=== PATIENT | female | born 1995 | race Caucasian/White ===

== ENCOUNTER 2023-12-30 10:24 | Inpatient (IN) | payer OTHER, SELFPAY ==
[2023-12-30 10:28] VITALS: BP 114/80; PULSE 72; RESP 18; TEMP 36.6; O2SAT 97
[2023-12-30 10:30] VITALS: BMI 35.3
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
[2023-12-30 14:00] VITALS: BP 120/87; PULSE 74; RESP 18; TEMP 36.6; O2SAT 97
[2023-12-30] MEDS: acetaminophen 325 mg Tablet 650 MG PO (18:01)
[2023-12-30 21:40] VITALS: BP 117/82; PULSE 86; RESP 18; O2SAT 96
[2023-12-31] MEDS: acetaminophen 325 mg Tablet 650 MG PO (01:48)
[2023-12-31 06:00] VITALS: BP 101/67; PULSE 75; RESP 16; TEMP 36.7; O2SAT 95
--- NOTE | 2023-12-31 08:04 | PC.NURSE ---
cooperative and calm during assessment. Patient denies SI, Hi, AVH, and depression. When asked about anxiety, patient stated not right now. Patient informed of PRN medications that are available if she decided she needs something to calm her nerves. Understanding verbalized. No pain. No questions.
[2023-12-31] MEDS: PRENATAL VIT NO.130/IRON/FOLIC 1 EACH TABLET PO (08:10)
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
[2023-12-31] MEDS: sertraline 50 mg Tablet PO (12:35)
[2023-12-31 14:00] VITALS: BP 90/60; PULSE 74; RESP 16; TEMP 37.1; O2SAT 96
[2023-12-31 19:21] VITALS: BP 127/84; PULSE 83; RESP 18; TEMP 36.7; O2SAT 97
[2024-01-01 06:00] VITALS: BP 123/80; PULSE 75; RESP 16; TEMP 36.8; O2SAT 97
--- NOTE | 2024-01-01 07:57 | PC.NURSE ---
Patient denies avh and si/hi. When asked if she was experiencing any depression she stated, yes, it's always there. Patient stated she couldn't really tell much of a difference after being placed on zoloft. Denies any pain this morning. No needs voiced at this time.
[2024-01-01] MEDS: sertraline 50 mg Tablet PO (08:22)
[2024-01-01] MEDS: PRENATAL VIT NO.130/IRON/FOLIC 1 EACH TABLET PO (08:22)
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
[2024-01-01 14:00] VITALS: BP 109/70; PULSE 73; RESP 17; TEMP 37.2; O2SAT 97
[2024-01-01 19:29] VITALS: BP 122/83; PULSE 80; RESP 16; TEMP 36.6; O2SAT 95
[2024-01-02 06:00] VITALS: BP 106/71; PULSE 75; RESP 18; TEMP 36.9; O2SAT 96
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
[2024-01-02] MEDS: sertraline 50 mg Tablet PO (09:22)
[2024-01-02] MEDS: PRENATAL VIT NO.130/IRON/FOLIC 1 EACH TABLET PO (09:22)
[2024-01-02 14:00] VITALS: BP 123/81; PULSE 74; RESP 18; TEMP 37.3; O2SAT 98
[2024-01-02 20:28] VITALS: BP 126/85; PULSE 78; RESP 16; TEMP 36.5; O2SAT 96
[2024-01-02] MEDS: diphenhydrAMINE 50 mg Capsule PO (22:28)
[2024-01-03 06:00] VITALS: BP 94/53; PULSE 64; RESP 16; TEMP 37.2; O2SAT 95
[2024-01-03] MEDS: sertraline 50 mg Tablet PO (08:53)
[2024-01-03] MEDS: ibuprofen 800 mg tablet PO (08:53)
[2024-01-03] MEDS: PRENATAL VIT NO.130/IRON/FOLIC 1 EACH TABLET PO (08:53)
--- NOTE | 2024-01-03 09:27 | PC.NURSE ---
UP IN ROOM PUMPING. BREAST MILK DATED AND STORED IN REFRIGERATOR. DENIES SI/HI AND AVH AT THIS TIME. RATES ANXIETY 2/10 AND DEPRESSION 4/10. PT APPEARS IN GOOD SPIRITS. GOAL FOR THE DAY IS TO ATTEND GROUPS. RATES PAIN 4/10 GENERALIZED, MED NURSE TO GIVE IBUPROFEN. SUPPORT VOICED.
[2024-01-03 14:00] VITALS: BP 120/80; PULSE 77; RESP 20; TEMP 36.4; O2SAT 97
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
[2024-01-03 20:17] VITALS: BP 124/79; PULSE 74; RESP 18; TEMP 37; O2SAT 97
[2024-01-04] MEDS: hyDROXYzine 25 mg Capsule 50 MG PO (02:53)
[2024-01-04 06:00] VITALS: BP 91/53; PULSE 67; RESP 16; TEMP 37.2; O2SAT 95
[2024-01-04] MEDS: PRENATAL VIT NO.130/IRON/FOLIC 1 EACH TABLET PO (09:07)
[2024-01-04] MEDS: sertraline 50 mg Tablet PO ×2 (09:07)
--- NOTE | 2024-01-04 09:52 | P.NPUDS_ITS ---
Diagnoses at Discharge Discharge Diagnosis (1) Major depressive disorder, recurrent severe without psychotic features: Status: Acute (2) ZAIDA (generalized anxiety disorder): Status: Acute (3) PTSD (post-traumatic stress disorder): Status: Acute Reason for Visit Reason for Visit: 150-2 Involuntary Hold Information 96 Hour Hold: 96 Hour Involuntary Admission: No Discharge Data Vitals: Last Vital Signs Temp 98.9 F 01/04/24 06:00 Pulse 67 01/04/24 06:00 Resp 16 01/04/24 06:00 BP 91/53 01/04/24 06:00 Pulse Ox 95 01/04/24 06:00 O2 Del Method Room Air 01/01/24 19:29 Discharge Plan Discharge Patient Disposition: Home Condition: Stable Prescriptions: New sertraline 100 mg tablet 100 mg PO DAILY 30 Days Qty: 30 1RF hydroxyzine pamoate 25 mg Capsule 50 mg PO Q6H PRN (Reason: Anxiety) 30 Days Qty: 120 1RF Continued 1 tab PO DAILY norethindrone (contraceptive) 1 tab PO DAILY Discharge Orders: Discharge Order (Routine); Ordered 01/04/24 Ordered By: John Vargas [facility] - 01/08/24 3:00 pm (Hospital follow up with Desirae) Discharge Diet: Regular Discharge Activity: Resume usual activity Patient Instructions: Opioid Safety Discharge Attestations NPU Time Spent in Discharge Care*: less than 30 min Specific Discharge Activities: Specific discharge activities: educating patie nt, discussing with human services case manager/social workers/dc planners, documenting/other paperwork and evaluating patient/reviewing data Coding Level of Care Code Acute Code for [facility] Fwd Diagnoses Major depressive disorder, recurrent severe without psychotic features F33.2 ZAIDA (generalized anxiety disorder) F41.1 PTSD (post-traumatic stress disorder) F43.10
[2024-01-04 10:46] VITALS: BP 91/53; PULSE 67; RESP 16; TEMP 37.2; O2SAT 95
== END 2024-01-04 13:35 | disposition home or self-care (01) | DRG 885 ==
PROVIDERS: Admitting Provider Psychiatry & Neurology Psychiatry; Visit Provider Psychiatry & Neurology Psychiatry
DX: F33.2 Major depressive disorder, recurrent severe without psychotic features (principal); R45.851 Suicidal ideations; F41.1 Generalized anxiety disorder; F43.10 Post-traumatic stress disorder, unspecified; E66.9 Obesity, unspecified; Z91.410 Personal history of adult physical and sexual abuse; Z68.35 Body mass index [BMI] 35.0-35.9, adult
CPT/HCPCS: 97150; 97165; Q0163